=== PATIENT | male | born 1990 | race Caucasian/White ===

== ENCOUNTER → 2016-08-25 | Outpatient (CLI) | payer OTHER ==
--- NOTE | 2016-08-25 16:34 | Diagnostic Imaging Report ---
PROCEDURE: MRI left joint lower extremity without contrast. TECHNIQUE: Multiplanar, multisequence MR imaging of the left knee was performed without contrast. COMPARISON: None available. INDICATION: Left knee pain after jumping injury. FINDINGS: MENISCI Medial meniscus: Normal. Lateral meniscus: Normal. LIGAMENTS ACL: Complete rupture of the mid substance of the ACL. PCL: Intact. MCL: Intact. LCL: The lateral collateral ligamentous complex is intact. EXTENSOR MECHANISM The extensor mechanism is intact. CARTILAGE Articular cartilage throughout all 3 compartments is well preserved. Specifically, there is no acute chondral defect or osteochondral lesion. BONE There is a small focus of subchondral microtrabecular fracture in the lateral femoral condyle with a small amount of surrounding bone marrow edema. Minimal amorphous subcortical bone marrow edema in the posterior aspect of the lateral tibial plateau is compatible with small focus of kissing contusion. SOFT TISSUE: Small knee joint effusion without synovitis. No Kolb's cyst. IMPRESSION: 1. Complete ACL rupture. 2. No meniscal tear. 3. Osseous contusions within the lateral femoral condyle and lateral tibial plateau (kissing contusions). There is a small focus of subchondral microtrabecular fracture in the lateral femoral condyle. 4. No MCL injury. 5. Small knee joint effusion. Dictated by: Dictated on workstation # [id number]
== END ==
LOC: RAD 14:55
PROVIDERS: ATTEND Orthopaedic Surgery
DX: M23.612 Other spontaneous disruption of anterior cruciate ligament of left knee (principal)
CPT/HCPCS: 73721

== ENCOUNTER 2020-08-13 10:50 | Inpatient (IN) | payer OTHER ==
[~2020-08-13] VITALS: Ht 187 cm; Wt 113.0 kg
--- NOTE | 2020-08-13 11:44 | ED General ---
General Chief Complaint: Cough/Cold/Flu Symptoms Stated Complaint: COVID + Nursing Triage Note: PTPRESENTS TO THE ED AMB. C/O NVD AND BEING UNABLE TO HOLD DOWN MEDS TO TX HIS FEVER. PT STATES HE TESTED POSITIVE FOR COVID THIS THURSDAY AT [facility]. STATES HE HAS BEEN UNABLE TO TOLERATE FOOD OR DRINK, EXPERIENCING FATIGUE. MILDLY PRODUCTIVE COUGH VERBALIZED WELL. Source of Information: Patient Exam Limitations: No Limitations (MARA GONZALES APRN) History of Present Illness Date Seen by Provider: Aug 13, 2020 Time Seen by Provider: 11:44 Initial Comments Unvaccinated Covid positive tested on of this past week at [facility]. Comes in today because he has nausea that precludes him from taking Tylenol or Motrin to control his fever and he is not able to eat or drink because of the vomiting. He became symptomatic 8 days ago. He is otherwise healthy and takes no medications and has no medical problems. Timing/Duration: 1 Week Severity: Moderate (MARA GONZALES APRN) Allergies and Home Medications Allergies Coded Allergies: No Known Drug Allergies (Unverified , 08/13/20) Patient Home Medication List Home Medication List Reviewed: Yes (MARA GONZALES APRN) Review of Systems Review of Systems Constitutional: see HPI, chills, malaise, weakness EENTM: see HPI Respiratory: see HPI, cough Cardiovascular: no symptoms reported Genitourinary: no symptoms reported Musculoskeletal: no symptoms reported Skin: no symptoms reported Psychiatric/Neurological: No Symptoms Reported Hematologic/Lymphatic: No Symptoms Reported Immunological/Allergic: no symptoms reported (MARA GONZALES APRN) Past Dofxbms-Cdxhxp-Wtrbhc Hx Patient Social History Tobacco Use?: No Substance use?: No Alcohol Use?: Yes Alcohol type: Beer Alcohol Frequency: Once in a while (MARA GONZALES APRN) Physical Exam Vital Signs Vital Signs - First Documented 08/13/20 08/13/20 11:06 11:07 Temp 39.1 Pulse 101 Resp 22 B/P (MAP) 138/83 (101) Pulse Ox 96 O2 Delivery Nasal Cannula O2 Flow Rate 2.00 (PEDRO COOL MD) Vital Signs Capillary Refill : Less Than 3 Seconds (MARA GONZALES APRN) Height, Weight, BMI Height: '" Weight: lbs. oz. kg; 32.00 BMI Method: General Appearance: No Apparent Distress, WD/WN HEENT: PERRL/EOMI, TMs Normal Neck: Full Range of Motion, Normal Inspection Respiratory: Normal Breath Sounds, No Accessory Muscle Use, No Respiratory Distress, Other (He does have some tachypnea, respiratory rate of 28-32. Heart rate 93. Blood pressure 140/82. Oxygen saturation varies from 92 to 93% on room air at rest. He was 90% on room air on arrival. He has a BMI of 32 which is close but not close enough to the requirement of 35 to qualify for monoclonal antibody infusion.) (MARA GONZALES APRN) Progress/Results/Core Measures Suspected Sepsis SIRS Temperature: Pulse: 101 Respiratory Rate: 22 Laboratory Tests 08/13/20 11:31: White Blood Count 2.7L Blood Pressure 138 /83 Mean: 101 Laboratory Tests 08/13/20 11:31: Creatinine 1.13, Platelet Count 151, Total Bilirubin 0.4 (MARA GONZALES APRN) Results/Orders Lab Results Laboratory Tests Test 08/13/20 11:31 Range/Units White Blood Count 2.7 L 4.3-11.0 10^3/uL Red Blood Count 5.70 H 4.30-5.52 10^6/uL Hemoglobin 14.9 13.3-17.7 g/dL Hematocrit 44 40-54 % Mean Corpuscular Volume 77 L 80-99 fL Mean Corpuscular Hemoglobin 26 25-34 pg Mean Corpuscular Hemoglobin Concent 34 32-36 g/dL Red Cell Distribution Width 12.9 10.0-14.5 % Platelet Count 151 130-400 10^3/uL Mean Platelet Volume 9.6 9.0-12.2 fL Immature Granulocyte % (Auto) 0 % Neutrophils (%) (Auto) 70 42-75 % Lymphocytes (%) (Auto) 20 12-44 % Monocytes (%) (Auto) 10 0-12 % Eosinophils (%) (Auto) 0 0-10 % Basophils (%) (Auto) 0 0-10 % Neutrophils # (Auto) 1.9 1.8-7.8 10^3/uL Lymphocytes # (Auto) 0.5 L 1.0-4.0 10^3/uL Monocytes # (Auto) 0.3 0.0-1.0 10^3/uL Eosinophils # (Auto) 0.0 0.0-0.3 10^3/uL Basophils # (Auto) 0.0 0.0-0.1 10^3/uL Immature Granulocyte # (Auto) 0.0 0.0-0.1 10^3/uL D-Dimer 0.85 H 0.00-0.49 UG/ML Sodium Level 135 135-145 MMOL/L Potassium Level 4.0 3.6-5.0 MMOL/L Chloride Level 102 98-107 MMOL/L Carbon Dioxide Level 18 L 21-32 MMOL/L Anion Gap 15 H 5-14 MMOL/L Blood Urea Nitrogen 15 7-18 MG/DL Creatinine 1.13 0.60-1.30 MG/DL Estimat Glomerular Filtration Rate > 60 BUN/Creatinine Ratio 13 Glucose Level 93 70-105 MG/DL Calcium Level 8.5 8.5-10.1 MG/DL Corrected Calcium 8.5 8.5-10.1 MG/DL Total Bilirubin 0.4 0.1-1.0 MG/DL Aspartate Amino Transf (AST/SGOT) 69 H 5-34 U/L Alanine Aminotransferase (ALT/SGPT) 72 H 0-55 U/L Alkaline Phosphatase 51 40-136 U/L Total Protein 7.6 6.4-8.2 GM/DL Albumin 4.0 3.2-4.5 GM/DL Procalcitonin 0.15 H <0.10 NG/ML (PEDRO COOL MD) Medications Given in ED Current Medications Medications Dose Ordered Sig/Paris Route Start Time Stop Time Status Last Admin Dose Admin Acetaminophen 1,000 mg ONCE ONCE PO 08/13/20 11:45 08/13/20 11:46 DC 08/13/20 12:25 1,000 MG Ibuprofen 800 mg ONCE ONCE PO 08/13/20 11:45 08/13/20 11:46 DC 08/13/20 12:25 800 MG Ondansetron HCl 8 mg ONCE ONCE IVP 08/13/20 11:45 08/13/20 11:46 DC 08/13/20 12:25 8 MG (PEDRO COOL MD) Vital Signs/I&O 08/13/20 08/13/20 08/13/20 08/13/20 11:06 11:07 12:25 12:25 Temp 39.1 39.2 39.2 Pulse 101 Resp 22 B/P (MAP) 138/83 (101) Pulse Ox 96 O2 Delivery Nasal Cannula Nasal Cannula O2 Flow Rate 2.00 (PEDRO COOL MD) Vital Signs/I&O Capillary Refill : Less Than 3 Seconds (MARA GONZALES APRN) Blood Pressure Mean: 101 Departure Communication (Admissions) 1309-Discussed with him that we could send him home on dexamethasone, come back if he gets worse. Understandably he is afraid to go home because of his nausea vomiting that keeps him from taking oral medications. I offered to prescribe him Zofran for home. Given that he is breathing 28-32 times a minute, 30 years old and with an oxygen saturation of 92% at rest, I have concern that he will decline and I think admission is warranted. I spoke with Dr. Benz, he agrees, will give remdesivir, Decadron and other medications for symptom control. (MARA GONZALES APRN) Impression Primary Impression: COVID-19 Disposition: 09 ADMITTED INPATIENT Condition: Stable Admissions Decision to Admit Reason: Admit from ER (General) Decision to Admit/Date: Aug 13, 2020 Time/Decision to Admit Time: 13:10 (MARA GONZALES APRN) ATTENDING PHYSICIAN NOTE: I was physically present as attending physician in the emergency department during the care of this patient, but I was not directly involved in the decision making or delivery of care for this patient. (PEDRO COOL MD) MARA GONZALES APRN Aug 13, 2020 11:44 PEDRO COOL MD Aug 13, 2020 20:35
[2020-08-13] MEDS ORDERED: IBUPROFEN 800 MG (MOTRIN) TAB PO ONE (11:45)
[2020-08-13] MEDS ORDERED: ACETAMINOPHEN 500 MG TAB (TYLENOL) PO ONE (11:45)
[2020-08-13] MEDS ORDERED: ONDANSETRON 4 MG/2 ML (SDV) Z0FRAN IVP ONE (11:45)
[2020-08-13] MEDS ORDERED: NS IV 1000 ML 1,000 ML IV SCH (11:45)
[2020-08-13 11:48] LABS: BASOPHILS % (AUTO) 0 % (0-10); EOSINOPHILS % (AUTO) 0 % (0-10); HEMATOCRIT 44 % (40-54); HEMOGLOBIN 14.9 g/dL (13.3-17.7); LYMPHOCYTES # (AUTO) 0.5 10^3/uL (1.0-4.0); LYMPHOCYTES % (AUTO) 20 % (12-44); MEAN CORPUSCULAR HEMOGLOBIN 26 pg (25-34); MEAN CORPUSCULAR HGB CONC 34 g/dL (32-36); MEAN CORPUSCULAR VOLUME 77 fL (80-99); MEAN PLATELET VOLUME 9.6 fL (9.0-12.2); MONOCYTES # (AUTO) 0.3 10^3/uL (0.0-1.0); MONOCYTES % (AUTO) 10 % (0-12); NEUTROPHILS # (AUTO) 1.9 10^3/uL (1.8-7.8); NEUTROPHILS % (AUTO) 70 % (42-75); PLATELET COUNT 151 10^3/uL (130-400); WHITE BLOOD COUNT 2.7 10^3/uL (4.3-11.0)
[2020-08-13 11:49] LABS: CHLORIDE 102 MMOL/L (98-107); SODIUM 135 MMOL/L (135-145)
[2020-08-13 11:50] LABS: CALCIUM 8.5 MG/DL (8.5-10.1)
[2020-08-13 11:51] LABS: GLUCOSE 93 MG/DL (70-105); TOTAL PROTEIN 7.6 GM/DL (6.4-8.2)
[2020-08-13 11:52] LABS: CARBON DIOXIDE 18 MMOL/L (21-32)
[2020-08-13 11:53] LABS: BILIRUBIN,TOTAL 0.4 MG/DL (0.1-1.0)
[2020-08-13 11:55] LABS: ALKALINE PHOSPHATASE 51 U/L (40-136); CREATININE SERUM 1.13 MG/DL (0.60-1.30); GFR ESTIMATED > 60
[2020-08-13 11:56] LABS: BUN/CREATININE RATIO 13
[2020-08-13 11:58] LABS: ALANINE AMINOTRANSFERASE 72 U/L (0-55)
--- NOTE | 2020-08-13 12:31 | Diagnostic Imaging Report ---
Portable erect AP chest at 12:22. Indication: Cough, history of COVID. There are no prior studies available for comparison. The heart size is within normal limits. There is a vague ringlike area of increased density measuring approximately 6 x 6 cm overlying the left heart border and left lung base. This finding is suspicious for pneumonia/atelectasis and may be related to the patient's diagnosis of COVID 19. There is also slight increased density in the right infrahilar region and there may be an element of very mild pneumonia/atelectasis in this area as well. The lungs are otherwise clear. There is no sign of a pleural effusion. The mediastinum is not widened. The osseous structures are intact. Impression: The prominent vague ringlike area of increased density in the left lung base is suspicious for pneumonia/atelectasis. There may also be a small amount of pneumonia/atelectasis the right infrahilar region. Followup PA and lateral chest would be recommended for further evaluation. Dictated by: Dictated on workstation # [id number]
[2020-08-13 15:30] VITALS: BP 124/72
[2020-08-13] MEDS ORDERED: IBUPROFEN 600 MG (MOTRIN) TAB PO PRN (16:00)
[2020-08-13] MEDS ORDERED: ACETAMINOPHEN 325 MG TABLET PO PRN (16:00)
[2020-08-13] MEDS ORDERED: ONDANSETRON 4 MG/2 ML (SDV) Z0FRAN IV PRN (16:00)
[2020-08-13] MEDS ORDERED: CATHETER FLUSH 10 ML SYR IV PRN (16:00)
[2020-08-13] MEDS ORDERED: REMDESIVIR 200 MG/NS 250 ML IVPB IV NR ×2 (16:00)
[2020-08-13 16:32] VITALS: BP 124/72
[2020-08-13] MEDS: ENOXAPARIN 40 MG/0.4 ML (LOVENOX) SYR SC SCH (16:38)
[2020-08-13 19:23] VITALS: BP 124/74
[2020-08-13] MEDS: RT-ALBUTEROL INHALER HFA (VENTOLIN HFA) 18 GM IH SCH (21:10)
[2020-08-13] MEDS: CATHETER FLUSH 10 ML SYR IV SCH (21:29)
[2020-08-13 23:49] VITALS: BP 117/74
[2020-08-14 04:00] VITALS: BP 148/87
[2020-08-14] MEDS: CATHETER FLUSH 10 ML SYR IV SCH ×3 (06:32→21:42)
[2020-08-14] MEDS: RT-ALBUTEROL INHALER HFA (VENTOLIN HFA) 18 GM IH SCH ×2 (07:52→21:42)
[2020-08-14 08:05] VITALS: BP 102/57
[2020-08-14 08:22] LABS: BASOPHILS % (AUTO) 0 % (0-10); EOSINOPHILS % (AUTO) 0 % (0-10); HEMATOCRIT 43 % (40-54); HEMOGLOBIN 14.5 g/dL (13.3-17.7); LYMPHOCYTES # (AUTO) 0.9 10^3/uL (1.0-4.0); LYMPHOCYTES % (AUTO) 28 % (12-44); MEAN CORPUSCULAR HEMOGLOBIN 26 pg (25-34); MEAN CORPUSCULAR HGB CONC 34 g/dL (32-36); MEAN CORPUSCULAR VOLUME 78 fL (80-99); MEAN PLATELET VOLUME 9.4 fL (9.0-12.2); MONOCYTES # (AUTO) 0.3 10^3/uL (0.0-1.0); MONOCYTES % (AUTO) 8 % (0-12); NEUTROPHILS % (AUTO) 63 % (42-75); PLATELET COUNT 163 10^3/uL (130-400); WHITE BLOOD COUNT 3.1 10^3/uL (4.3-11.0)
[2020-08-14 08:40] LABS: ALBUMIN 3.8 GM/DL (3.2-4.5); CHLORIDE 107 MMOL/L (98-107); POTASSIUM 3.7 MMOL/L (3.6-5.0); SODIUM 143 MMOL/L (135-145)
[2020-08-14 08:41] LABS: CALCIUM 8.4 MG/DL (8.5-10.1)
[2020-08-14 08:42] LABS: GLUCOSE 94 MG/DL (70-105); TOTAL PROTEIN 7.1 GM/DL (6.4-8.2)
[2020-08-14 08:43] LABS: CARBON DIOXIDE 24 MMOL/L (21-32)
[2020-08-14 08:44] LABS: BILIRUBIN,TOTAL 0.4 MG/DL (0.1-1.0)
[2020-08-14 08:46] LABS: ALKALINE PHOSPHATASE 46 U/L (40-136); CREATININE SERUM 1.08 MG/DL (0.60-1.30); GFR ESTIMATED > 60
[2020-08-14 08:47] LABS: BUN/CREATININE RATIO 14
[2020-08-14 08:49] LABS: ALANINE AMINOTRANSFERASE 63 U/L (0-55)
[2020-08-14] MEDS: guaiFENesin/DM (ROBITUSSIN DM) 10 ML UDC PO PRN ×2 (08:49→21:44)
[2020-08-14] MEDS ORDERED: PANTOPRAZOLE 40 MG (PROTONIX) TAB PO ONE (09:45)
[2020-08-14] MEDS ORDERED: ANTACID SUSP 30 ML UDC (MYLANTA) PO PRN (09:45)
[2020-08-14] MEDS: PROMETHAZINE INJ 25 MG/ML (PHENERGAN) AMP IV PRN ×2 (10:47→23:53)
[2020-08-14] MEDS ORDERED: IBUP-2185 PO (11:12)
[2020-08-14] MEDS ORDERED: OMEP-401 PO (11:12)
[2020-08-14] MEDS ORDERED: ACET-2267 PO (11:12)
[2020-08-14 11:48] VITALS: BP 119/72
--- NOTE | 2020-08-14 13:34 | History & Physical-Hospitalist ---
History of Present Illness HPI/Chief Complaint Abbe Angel is a 30 year old male who presented with nausea. He had tested positive for COVID-19 about 5 days ago. His symptoms first started 9 days ago. He has been having fevers. He has been taking Tylenol and Ibuprofen, but with his nausea and vomiting he has been unable to take anything. He has also had some diarrhea. He has lost his sense of taste and smell. He is short of breath and coughing. He did not get the vaccine and says it is because "I'm an idiot". Source: patient Exam Limitations: no limitations Date Seen 08/14/20 Time Seen by a Provider: 09:35 Attending Physician Moises Lai MD PCP No,Local Physician Referring Physician Date of Admission Aug 13, 2020 at 13:16 Home Medications & Allergies Home Medications Reviewed patient Home Medication Reconciliation performed by pharmacy medication reconciliations premises technician and/or nursing. Patients Allergies have been reviewed. Allergies Allergies Coded Allergies No Known Drug Allergies (Unverified08/13/20) Past Nhiwlsy-Nhnxym-Kpmsfx Hx Patient Social History Tobacco Use?: No Substance use?: No Alcohol Use?: Yes Alcohol type: Beer Alcohol Frequency: Once in a while Pt feels they are or have been: No Immunizations Up To Date Tetanus Booster (TDap): Less Than 5 Years Current Status Advance Directives: No Communicates: Verbally Primary Language: Greenlandic Preferred Spoken Language: Greenlandic Is interpretation needed?: No Family Medical History No Pertinent Family Hx Review of Systems Constitutional: fever, malaise EENTM: no symptoms reported Respiratory: cough, short of breath Cardiovascular: no symptoms reported Gastrointestinal: diarrhea, nausea, vomiting Genitourinary: no symptoms reported Musculoskeletal: no symptoms reported Skin: no symptoms reported Psychiatric/Neurological: No Symptoms Reported Physical Exam Physical Exam Vital Signs Vital Signs - First Documented 08/13/20 08/13/20 11:06 11:07 Temp 39.1 Pulse 101 Resp 22 B/P (MAP) 138/83 (101) Pulse Ox 96 O2 Delivery Nasal Cannula O2 Flow Rate 2.00 Capillary Refill : Less Than 3 Seconds Height, Weight, BMI Height: '" Weight: lbs. oz. kg; 32.31 BMI Method: General Appearance: Mild Distress (uncomfortable), Obese HEENT: PERRL/EOMI, Pharynx Normal Neck: Normal Inspection, Supple Respiratory: Lungs Clear, Normal Breath Sounds, No Respiratory Distress Cardiovascular: Regular Rate, Rhythm, No Edema, No Murmur Gastrointestinal: Normal Bowel Sounds, Non Tender, Soft Extremity: Normal Inspection, Non Tender, No Pedal Edema Neurologic/Psychiatric: Alert, Oriented x3, No Motor/Sensory Deficits, Normal Mood/Affect Skin: Normal Color, Warm/Dry Lymphatic: No Adenopathy Results Results/Procedures Labs Laboratory Tests 08/13/20 11:31 08/14/20 08:00 Patient resulted labs reviewed. Imaging: Reviewed Imaging Report Assessment/Plan Admission Diagnosis Acute respiratory failure due to COVID-19 Admission Status: Inpatient Order (span 2 midnights) Reason for Inpatient Admission: COVID requiring oxygen Assessment and Plan Acute respiratory failure due to COVID-19 Intractable nausea and vomiting Lymphopenia associated with COVID-19 Elevated LFTs Initially requiring supplemental oxygen Now on room air Started on Decadron Given loading dose of Remdesivir Convalescent plasma deferred Antibiotics not indicated LFTs improving Lymphopenia improving Continue to monitor DVT prophylaxis: Lovenox Diagnosis/Problems Diagnosis/Problems (1) Acute respiratory failure due to COVID-19 Status: Acute (2) Intractable nausea and vomiting Status: Acute (3) Lymphopenia associated with COVID-19 Status: Acute (4) Elevated LFTs Status: Acute MOISES LAI MD Aug 14, 2020 13:34
[2020-08-14] MEDS: ENOXAPARIN 40 MG/0.4 ML (LOVENOX) SYR SC SCH (15:33)
[2020-08-14] MEDS ORDERED: REMDESIVIR 100 MG/NS 250 ML IVPB IV SCH ×2 (16:00)
[2020-08-14 16:04] VITALS: BP 103/67
[2020-08-14 19:30] VITALS: BP 112/69
[2020-08-14 23:40] VITALS: BP_SYST 112; BP_SYST 118; BP_DIAS 69; BP_DIAS 74
[2020-08-15 03:20] VITALS: BP 101/63
[2020-08-15] MEDS: CATHETER FLUSH 10 ML SYR IV SCH ×2 (06:19→13:11)
[2020-08-15 08:00] VITALS: BP 113/71
[2020-08-15 08:28] LABS: BASOPHILS % (AUTO) 0 % (0-10); EOSINOPHILS % (AUTO) 0 % (0-10); HEMATOCRIT 40 % (40-54); HEMOGLOBIN 13.1 g/dL (13.3-17.7); LYMPHOCYTES # (AUTO) 1.1 10^3/uL (1.0-4.0); LYMPHOCYTES % (AUTO) 39 % (12-44); MEAN CORPUSCULAR HEMOGLOBIN 26 pg (25-34); MEAN CORPUSCULAR HGB CONC 33 g/dL (32-36); MEAN CORPUSCULAR VOLUME 79 fL (80-99); MEAN PLATELET VOLUME 9.2 fL (9.0-12.2); MONOCYTES # (AUTO) 0.3 10^3/uL (0.0-1.0); MONOCYTES % (AUTO) 11 % (0-12); NEUTROPHILS # (AUTO) 1.5 10^3/uL (1.8-7.8); NEUTROPHILS % (AUTO) 50 % (42-75); PLATELET COUNT 163 10^3/uL (130-400); WHITE BLOOD COUNT 2.9 10^3/uL (4.3-11.0)
[2020-08-15 08:44] LABS: CHLORIDE 105 MMOL/L (98-107); POTASSIUM 3.6 MMOL/L (3.6-5.0); SODIUM 139 MMOL/L (135-145)
[2020-08-15 08:46] LABS: GLUCOSE 95 MG/DL (70-105)
[2020-08-15 08:47] LABS: CARBON DIOXIDE 24 MMOL/L (21-32)
[2020-08-15 08:50] LABS: BUN/CREATININE RATIO 16; CREATININE SERUM 1.11 MG/DL (0.60-1.30); GFR ESTIMATED > 60
[2020-08-15] MEDS ORDERED: PANTOPRAZOLE 40 MG (PROTONIX) TAB PO SCH (09:00)
[2020-08-15] MEDS: RT-ALBUTEROL INHALER HFA (VENTOLIN HFA) 18 GM IH SCH (09:06)
[2020-08-15] MEDS: guaiFENesin/DM (ROBITUSSIN DM) 10 ML UDC PO PRN (09:44)
[2020-08-15 12:00] VITALS: BP 109/71
[2020-08-15] MEDS ORDERED: ONDN4T PO (13:31)
[2020-08-15 14:28] VITALS: BP 109/71
== END 2020-08-15 14:28 | disposition home or self-care (01) | DRG 177 ==
LOC: EDUNIT# 10:50 → ER 10:51 → 4TH 13:16
PROVIDERS: ADMIT Internal Medicine; ATTEND Internal Medicine
PROC: XW033E5 Introduction of Remdesivir Anti-infective into Peripheral Vein, Percutaneous Approach, New Technology Group 5 (ICD-10-PCS; principal; 2020-08-13)
DX: U07.1 COVID-19 (principal); J96.00 Acute respiratory failure, unspecified whether with hypoxia or hypercapnia; D72.810 Lymphocytopenia; R74.8 Abnormal levels of other serum enzymes; Z73.0 Burn-out
CPT/HCPCS: 36415; 71045; 80048; 80053; 82947; 84145; 85025; 85379; 94640; 94760; 96361; 96374; 96375